=== PATIENT | male | born 1975 | race Caucasian/White ===

== ENCOUNTER 2017-09-23 08:30 | Day surgery (SDC) | payer MEDICARE, MEDICAID ==
[2017-09-23] VITALS (11 sets, daily range): BP systolic 113–138; BP diastolic 69–84
[~2017-09-23] VITALS: Ht 190.5 cm; Wt 110.4 kg
[2017-09-23] MEDS ORDERED: normal saline 1000ml 1,000 ML IV SCH (08:55)
[2017-09-23] MEDS ORDERED: diphenhydrAMINE 25mg capsule PO PRN (08:55)
[2017-09-23] MEDS ORDERED: LORazepam 0.5 MG tablet PO PRN (08:55)
[2017-09-23] MEDS ORDERED: nitroGLYCERIN 0.4mg SUBLingual tab SL PRN (08:55)
[2017-09-23] MEDS ORDERED: midazolam 2 mg/2 ml injection ONE ×2 (09:49→10:30)
[2017-09-23] MEDS ORDERED: iohexol 350 MG/ML 50ML vial IV ONE (09:49)
[2017-09-23] MEDS ORDERED: iohexol 350MG/ML 100ml bottle IV ONE (09:49)
[2017-09-23] MEDS ORDERED: fentaNYL/PF 50MCG/1 ML 2ML syringe ONE ×2 (09:49→10:32)
[2017-09-23 09:50] LABS: BASOPHILS # (AUTO) 0.1 X10'3 (0-0.2); BASOPHILS % (AUTO) 1.2 % (0-1); EOSINOPHILS # (AUTO) 0.2 X10'3 (0-0.9); EOSINOPHILS % (AUTO) 3.6 % (0-6); HEMATOCRIT 42.8 % (42.0-52.0); HEMOGLOBIN 14.5 g/dl (14.0-17.9); LYMPHOCYTES # (AUTO) 1.6 X10'3 (1.1-4.8); MEAN CORPUSCULAR HEMOGLOBIN 31.1 PG (27.0-31.0); MEAN CORPUSCULAR HGB CONC 33.8 % (33.0-36.5); MEAN CORPUSCULAR VOLUME 91.9 FL (78-98); MONOCYTES # (AUTO) 0.5 X10'3 (0-0.9); NEUTROPHILS # (AUTO) 3.5 X10'3 (1.8-7.7); NEUTROPHILS % (AUTO) 59.2 % (42-75); PLATELET COUNT 193 X10'3 (140-440); RED BLOOD COUNT 4.66 X10'6 (4.70-6.10); RED CELL DISTRIBUTION WIDTH 14.3 % (11.5-14.5); WHITE BLOOD COUNT 5.8 X10'3 (4.5-11.0)
[2017-09-23 10:04] LABS: PARTIAL THROMBOPLASTIN TIME 25 SECONDS (22-32); PROTHROMBIN TIME 10.3 SECONDS (9.0-12.0)
[2017-09-23] MEDS ORDERED: HYDR-3686 PO (10:08)
[2017-09-23] MEDS ORDERED: SYN0.088T PO (10:08)
[2017-09-23] MEDS ORDERED: TEMA30CA PO (10:08)
[2017-09-23] MEDS ORDERED: BACL20TA PO (10:08)
[2017-09-23] MEDS ORDERED: TRAM50TA2 PO (10:08)
[2017-09-23] MEDS ORDERED: OXCA300T4 PO (10:08)
[2017-09-23] MEDS ORDERED: ERGO500014 PO (10:08)
[2017-09-23] MEDS ORDERED: CLON-527 PO (10:08)
[2017-09-23] MEDS ORDERED: DICY20TA14 PO (10:08)
[2017-09-23] MEDS ORDERED: BENZ1TAB7 PO (10:08)
[2017-09-23] MEDS ORDERED: AMYL1CAP54 PO (10:08)
[2017-09-23] MEDS ORDERED: ATOR10TA87 PO (10:08)
[2017-09-23] MEDS ORDERED: LURA40TA3 PO (10:08)
[2017-09-23 10:09] LABS: ALBUMIN 3.6 G/DL (3.4-5.0); ANION GAP 2 (8-16); BLOOD UREA NITROGEN 12 MG/DL (7-18); BUN/CREATININE RATIO 13.5 (5.4-32.0); CHLORIDE 105 MMOL/L (99-107); CREATININE 0.89 MG/DL (0.60-1.10); GLUCOSE 108 MG/DL (70-104); POTASSIUM 4.2 MMOL/L (3.5-5.1); SODIUM 138 MMOL/L (135-145); TOTAL CARBON DIOXIDE 31.3 MMOL/L (24-32); eGFR > 90 ML/MIN
[2017-09-23] MEDS ORDERED: LIDOcaine 1% 30ml preserv. free vial ONE (10:22)
[2017-09-23] MEDS ORDERED: proCHLORperazine 10 MG/2 ml inj ONE (10:33)
[2017-09-23] MEDS ORDERED: ondansetron/PF 4mg/2ml inj IV PRN (13:45)
[2017-09-23] MEDS ORDERED: HYDROcodone/acetaminophen 10/325mg tab PO PRN (13:45)
[2017-09-23] MEDS ORDERED: HYDROcodone/acetaminophen 5mg/325mg tablet PO PRN (13:45)
[2017-09-23] MEDS ORDERED: OXAZEpam 15mg capsule PO PRN (13:45)
[2017-09-23] MEDS ORDERED: HYDROmorphone 1 mg/ml syringe IV PRN (13:45)
[2017-09-23] MEDS ORDERED: proCHLORperazine 10 MG/2 ml inj IV PRN (13:45)
== END 2017-09-23 17:52 | disposition home or self-care (01) ==
LOC: SSTAY O 08:30
PROVIDERS: ATTEND Internal Medicine Cardiovascular Disease
DX: I25.10 Atherosclerotic heart disease of native coronary artery without angina pectoris (principal); G89.4 Chronic pain syndrome; F31.9 Bipolar disorder, unspecified; E78.5 Hyperlipidemia, unspecified; Z79.899 Other long term (current) drug therapy; I10 Essential (primary) hypertension; Z98.890 Other specified postprocedural states; F17.200 Nicotine dependence, unspecified, uncomplicated; Z82.49 Family history of ischemic heart disease and other diseases of the circulatory system; Z88.5 Allergy status to narcotic agent; Z90.49 Acquired absence of other specified parts of digestive tract
CPT/HCPCS: 36415; 71046; 80048; 85025; 85610; 85730; 93458; 99152; 99153; A6257; C1760; C1769; J0780; J1644; J2250; J3010; J3490; J7030; Q0163; Q9967; A4620